=== PATIENT | female | born 1940 | race Caucasian/White ===

== ENCOUNTER 2020-02-05 13:53 | Emergency (ER) | payer MEDICARE ==
[2020-02-05] MEDS ORDERED: Ketorolac Tromethamine 30 MG/ML VIAL ONE (14:29)
[2020-02-05] MEDS ORDERED: Acetaminophen 325 MG TAB ONE (14:30)
[2020-02-05] MEDS ORDERED: HYDROcodone/Acetaminophen 5/325 mg Tablet ONE (16:15)
--- NOTE | 2020-02-05 18:08 | RAD ---
RIGHT WRIST THREE VIEWS: 02/05/20 There is a very subtle line seen through the tip of the radial styloid process on one view only. A ely irline fracture here is possible. The distal pole of the scaphoid is performed suggestive of an old i njury here. 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 The distal radius and ulna both appeared intact. Th e carpal relationships were normal. The scapholunate distance is slightly large at 2.9 mm. IMPRESSION: 1. Tiny line in the tip of the radial styloid process on one view only. If there is point tender ness here, then the possibility of a small hairline fracture is raised. This could also be old trauma . 2. Evidence of old trauma to the distal portion of the scaphoid with resulting arthritic change between it and the trapezium and between the trapezium and base of the first metacarpal. 3. 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 POS: HOME
== END 2020-02-05 20:59 | disposition home or self-care (01) ==
LOC: BURERS 13:53
DX: S52.501A Unspecified fracture of the lower end of right radius, initial encounter for closed fracture (principal); W19.XXXA Unspecified fall, initial encounter
CPT/HCPCS: 29125; 96372; J1885

== ENCOUNTER 2020-10-31 11:10 | Emergency (ER) | payer MEDICARE ==
[2020-10-31] MEDS ORDERED: Triamcinolone 40 MG/ML VIAL ONE ×2 (11:49→11:50)
== END 2020-10-31 11:55 | disposition home or self-care (01) ==
LOC: BURERS 11:10
DX: T78.3XXA Angioneurotic edema, initial encounter (principal); I10 Essential (primary) hypertension
CPT/HCPCS: 96372; 99283; J3301

== ENCOUNTER 2023-07-10 14:16 | Outpatient (CLI) | payer MEDICARE ==
[2023-07-10 14:50] LABS: #Basophils 0.1 thou/uL (0.0-0.2); #Eosinphils 0.3 thou/uL (0.0-0.7); #Lymphocytes 1.9 thou/uL (1.20-3.40); #Monocytes 0.5 thou/uL (0.11-0.59); %Eosinophils 4.5 % (0.0-10.0); %Lymphocytes 33.5 % (21.0-51.0); %Monocytes 8.4 % (0.0-10.0); %Neutrophils 52.5 % (42.0-75.0); Hematocrit 42.4 % (36.0-47.0); Hemoglobin 13.5 g/dL (12.0-16.0); Mean Corpuscular HGB CONC 31.9 g/dL (32.0-36.0); Mean Corpuscular Hemoglobin 27.4 pg (27.0-31.0); Mean Corpuscular Volume 85.9 fl (78.0-98.0); Mean Platelet Volume 6.5 fL (7.4-10.4); Platelet Count 213 10x3/uL (130-400); RBC Distribution Width 12.6 % (11.5-14.5); Red Blood Cell (RBC) Count 4.94 mill/uL (4.20-5.40); White Blood Cell (WBC) Count 5.7 10x3/uL (4.8-10.8)
[2023-07-10 15:07] LABS: ALT (SGPT) 15 U/L (8-55); AST (SGOT) 15 U/L (5-34); Alkaline Phosphatase 78 U/L (40-110); Anion Gap 12 mmol/L (10-20); BUN (Urea Nitrogen) 16 mg/dL (9.8-20.1); Bilirubin, Total 0.4 mg/dL (0.2-1.2); Calc. Creatinine Clearance 0 mL/min (70-130); Calcium 9.4 mg/dL (7.8-10.44); Carbon Dioxide 24 mmol/L (23-31); Chloride 102 mmol/L (98-107); Estimated GFR 75; Globulin 2.5 g/dL (2.4-3.5); Glucose 119 mg/dL (83-110); Potassium 4.1 mmol/L (3.5-5.1); Protein, Total 6.5 g/dL (5.8-8.1); Sodium 134 mmol/L (136-145)
[2023-07-10 15:35] LABS: Thyroid Stimulating Hormone 0.9528 uIU/mL (0.35-4.94)
[2023-07-10 22:46] LABS: Hemoglobin A1c 5.9 % (4.0-6.0)
[2023-07-11 02:22] LABS: HBCM Index 0.11 S/CO (0-0.79); HBsAg Index 0.25 S/CO (0-0.99); Hep A IgM AB NONREACTIVE (NonReactive); Hep A IgM S/CO 0.15 S/CO (0-0.79); Hep B Surf Ag NONREACTIVE S/CO (NonReactive); Hep C IgG Ab NONREACTIVE S/CO (NonReactive); Hep C Index 0.09 S/CO (0-0.79); Hepatitis B Core IgM Abs NONREACTIVE S/CO (NonReactive)
== END 2023-07-10 14:17 | disposition home or self-care (01) ==
LOC: BUREKG 14:16
PROVIDERS: ATTEND Family Medicine
DX: Z01.818 Encounter for other preprocedural examination (principal); Z11.59 Encounter for screening for other viral diseases; I10 Essential (primary) hypertension; E03.9 Hypothyroidism, unspecified
CPT/HCPCS: 36415; 71046; 80053; 80074; 83036; 84439; 84443; 85025; 93005; 93010